=== PATIENT | male | born 1950 | race Caucasian/White ===

== ENCOUNTER → 2018-08-12 | Day surgery (SDC) | payer OTHER ==
[~2018-08-12] MED LIST: AMILODIPINE PO; CLOPIDOGREL BIS75 MG PO; HYDROCHLOROTH12.5 MG PO; LISINOPRIL20 MG PO; RANITIDINE HCL150 M1 PO; ZOCOR5 MG PO
== END | disposition home or self-care (01) ==
LOC: CIR.AMB 06:31
DX: G90.512 Complex regional pain syndrome I of left upper limb (principal)